=== PATIENT | female | born 2000 | race Caucasian/White ===

== ENCOUNTER 2023-08-13 23:41 | Emergency (ER) | payer OTHER, SELFPAY ==
[2023-08-13 23:49] VITALS: BP 123/85; PULSE 81; RESP 16; TEMP 36.7; O2SAT 98; BMI 24.0
== END 2023-08-14 00:13 | disposition left against medical advice (07) ==
PROVIDERS: Emergency Provider Family Medicine
DX: Z53.21 Procedure and treatment not carried out due to patient leaving prior to being seen by health care provider (principal)